=== PATIENT | female | born 1960 | race Caucasian/White ===

== ENCOUNTER → 2016-07-02 | Outpatient (CLI) | payer OTHER ==
[~2016-07-02] MED LIST: ASPI-435 PO; ATOR10TA88 PO; CALC600T9 PO; CYAN10004 SL; DIAZ5TAB PO; ESTR0.035 TOP; GLAT1INJ IM; HYDR-4383 PO; MECL1TAB42 PO; MULT-506 PO
--- NOTE | 2016-07-02 10:43 | DIAGNOSTIC IMAGING REPORT ---
KUB CLINICAL HISTORY: N20.0 [id number] COMPARISON STUDY: 06/27/2015 FINDINGS: There is no pathologic bowel dilatation. Surgical clips within the right upper quadrant consistent with a prior cholecystectomy. There are multiple pelvic basin calcifications, likely representing phleboliths. No renal calculi are visualized. IMPRESSION: 1. No evidence of pathologic bowel dilatation 2. No renal calculi are visualized on conventional radiographic imaging Electronically signed by: Sandoval Belle M.D. 07/02/2016 10:41 AM Dictated Date/Time: 07/02/2016 10:40 AM
== END | disposition home or self-care (01) ==
LOC: C.RAD 10:05
PROVIDERS: ATTEND Urology
DX: N20.0 Calculus of kidney (principal)

== ENCOUNTER → 2016-07-02 | Outpatient (CLI) | payer OTHER | END | disposition home or self-care (01) | LOC: C.LABSPEC 17:28 | PROVIDERS: ATTEND Urology | DX: R30.0 Dysuria (principal) ==

== ENCOUNTER → 2017-01-09 | Outpatient (CLI) | payer OTHER ==
--- NOTE | 2017-01-09 13:20 | DIAGNOSTIC IMAGING REPORT ---
Brain MRI WITHOUT CONTRAST HISTORY: G35 Multiple [id number] Gait [id number] Cognitive disorder TECHNIQUE: Multiplanar multisequence MRI of the brain was performed without the use of contrast. COMPARISON STUDY: Brain MRI 12/01/2014. FINDINGS: There are no areas of restricted diffusion to suggest acute infarction. The midline structures are intact. The paranasal sinuses are clear. The mastoid air cells are clear. The ventricles and sulci are within normal limits for age. There is no mass, hematoma, midline shift. The major vascular flow-voids at the skull base are well maintained. No significant change in the scattered foci of T2 hyperintensity within the subcortical and periventricular white matter of the supratentorial brain. These are consistent with white matter plaques given the patient's history of multiple sclerosis. There is also stable focal area of increased T2 signal within the dwayne. IMPRESSION: No significant change in the scattered white matter plaques seen throughout the supratentorial and infratentorial brain. Electronically signed by: Cheko Jose M.D. 01/09/2017 1:18 PM Dictated Date/Time: 01/09/2017 1:12 PM
[2017-01-09 13:27] LABS: BASO % 0.2 %; BASO ABS # 0.02 K/uL (0-0.2); COMPLETE YES; EOS % 0.5 %; IG% 0.2 %; LYMPH ABS # 1.85 K/uL (1.2-3.4); MEAN CELL VOLUME 96.4 fL (80-100); MEAN CORPUSCULAR HEMOGLOBIN 31.9 pg (25-34); MEAN CORPUSCULAR HGB CONC 33.1 g/dl (32-36); MONO % 5.8 %; NEUT % 76.3 %; PLATELET COUNT 221 K/uL (130-400); RED BLOOD COUNT 4.67 M/uL (4.2-5.4); WHITE BLOOD COUNT 10.91 K/uL (4.8-10.8)
[2017-01-09 14:43] LABS: ALT/SGPT 31 U/L (12-78); AST/SGOT 24 U/L (15-37); BLOOD UREA NITROGEN 11 mg/dl (7-18); BUN/CREATININE RATIO 13.4 (10-20); CALCIUM 9.8 mg/dl (8.5-10.1); CARBON DIOXIDE 28 mmol/L (21-32); CHLORIDE 105 mmol/L (98-107); GLUCOSE 78 mg/dl (70-99); POTASSIUM 3.8 mmol/L (3.5-5.1); SODIUM 139 mmol/L (136-145)
[2017-01-09 14:53] LABS: ALKALINE PHOSPHATASE 108 U/L (45-117)
== END | disposition home or self-care (01) ==
LOC: C.MRIBC 12:04
PROVIDERS: ATTEND Psychiatry & Neurology Neurology
DX: F09 Unspecified mental disorder due to known physiological condition (principal); G35 Multiple sclerosis; R26.9 Unspecified abnormalities of gait and mobility; E55.9 Vitamin D deficiency, unspecified; R53.83 Other fatigue